=== PATIENT | male | born 1955 | race Caucasian/White ===

== ENCOUNTER 2018-01-19 13:02 | Emergency (ER) | payer OTHER ==
[~2018-01-19] VITALS: Ht 180.3 cm; Wt 93.0 kg
[~2018-01-19 13:02] MED LIST: ADULT LOW DOSE81 MG PO; ATENOLOL 25 MG25 M1; ATENOLOL 50MG T50 M1 PO; CENTRUM SILVER1 EAC4 PO; COUMADIN 5 MG TA5 M1 PO; COUMADIN7.5 MG PO; CRESTOR20 MG PO; FISH OIL 1,0001 EAC5 PO; GARLIC OIL1 EACH PO; GLUCOSAMINE CH1 EAC7 PO; LIPITOR40 MG PO; MULTAQ400 MG PO; SYNTHROID100 MCG PO; TOPROL XL50 MG PO
[2018-01-19 13:56] LABS: URINE BLOOD 3+ (Negative); URINE CLARITY CLEAR; URINE COLOR YELLOW; URINE GLUCOSE-RANDOM* NEGATIVE (Negative); URINE KETONES NEGATIVE (Negative); URINE LEUKOCYTES-REFLEX NEGATIVE (Negative); URINE NITRITE-REFLEX NEGATIVE (Negative); URINE PROTEIN (DIPSTICK) 2+ (Negative); URINE SPECIFIC GRAVITY >= 1.030 (1.005-1.035); URINE UROBILINOGEN 0.2 E.U./dl (0.2-1.0)
[2018-01-19 13:58] LABS: ICTOTEST (BILI CONFIRMATORY) Negative (Negative); URINE BILIRUBIN NEGATIVE (Negative)
[2018-01-19 14:06] LABS: BACTERIA-REFLEX 1-9 Few /HPF (None Seen); CASTS None Seen /LPF (None Seen); CRYSTALS None Seen /LPF (None Seen); SQUAMOUS 0-3 Few /LPF (0-3); URINE WBC-REFLEX None Seen /HPF (0-5)
[2018-01-19 14:09] LABS: ABSOLUTE NEUTROPHILS 8.7 thou/uL (1.4-8.2); BASOPHILS 0.5 % (0.0-2.0); HEMATOCRIT 49.1 % (42.0-52.0); HEMOGLOBIN 16.9 gm/dL (14.0-18.0); MCH 32.6 pg (26.0-34.0); MCHC 34.4 g/dL (28.0-37.0); MCV 94.6 fL (80.0-100.0); MONOCYTES 5.6 % (1.0-8.0); PLATELET COUNT 163 thou/uL (150-400); POLYS 80.9 % (36.0-66.0); RBC 5.19 mil/uL (4.50-6.00); RDW 13.3 % (10.5-14.5); WBC 10.7 thou/uL (4.0-11.0)
[2018-01-19 14:15] LABS: CALCIUM 8.9 mg/dL (8.5-10.1); CREATININE 1.3 mg/dL (0.7-1.3); POTASSIUM 4.6 mmol/L (3.5-5.1)
[2018-01-19 14:23] LABS: INR 3.9; PROTIME 38.6 Seconds (9.3-11.4)
[2018-01-19] MEDS ORDERED: HYDROCODONE-AP1 EAC6 PO (15:01)
[2018-01-19] MEDS ORDERED: FLOMAX0.4 MG PO (15:01)
[2018-01-19] MEDS ORDERED: ONDANSETRON HCL4 M2 PO (15:01)
== END 2018-01-19 15:45 | disposition home or self-care (01) ==
LOC: ER 13:02
PROVIDERS: Nurse Practitioner Family
DX: N13.2 Hydronephrosis with renal and ureteral calculous obstruction (principal); R79.1 Abnormal coagulation profile; I48.91 Unspecified atrial fibrillation; E78.00 Pure hypercholesterolemia, unspecified; I10 Essential (primary) hypertension; Z90.49 Acquired absence of other specified parts of digestive tract; Z98.890 Other specified postprocedural states